=== PATIENT | male | born 1995 | race Caucasian/White ===

== ENCOUNTER 2017-05-12 03:53 | Emergency (ER) | payer MEDICAID ==
[~2017-05-12] VITALS: Ht 175.3 cm; Wt 72.4 kg
[2017-05-12 03:54] VITALS: BP 154/76
== END 2017-05-12 05:09 | disposition left against medical advice (07) ==
LOC: ED 04:15
DX: L20.9 Atopic dermatitis, unspecified (principal)
CPT/HCPCS: 99283

== ENCOUNTER 2018-01-03 20:31 | Emergency (ER) | payer MEDICAID ==
[~2018-01-03] VITALS: Ht 175.3 cm; Wt 68.3 kg
[2018-01-03 20:36] VITALS: BP 156/89
[2018-01-03] MEDS ORDERED: AZITHROMYCIN 250 MG TABLET ONE (21:34)
[2018-01-03] MEDS ORDERED: CEFTRIAXONE 250 MG ONE (21:34)
[2018-01-03 21:43] LABS: MICROSCOPIC NOT IND
[2018-01-03 21:47] LABS: CULTURE INDICATED? NO
[2018-01-03] MEDS ORDERED: AZITHROMYCIN 500 MG TABLET PO ONE (22:00)
[2018-01-03] MEDS ORDERED: CEFTRIAXONE 250 MG IM ONE (22:00)
== END 2018-01-03 22:42 | disposition home or self-care (01) ==
LOC: ED 22:35
DX: R30.0 Dysuria (principal); N41.0 Acute prostatitis; N34.2 Other urethritis; Z20.2 Contact with and (suspected) exposure to infections with a predominantly sexual mode of transmission
CPT/HCPCS: 81003; 87491; 87591; 96372; 99284; J0696

== ENCOUNTER 2018-03-07 01:21 | Emergency (ER) | payer MEDICAID ==
[~2018-03-07] VITALS: Ht 172.7 cm; Wt 70.4 kg
[2018-03-07 01:26] VITALS: BP 154/94
== END 2018-03-07 01:54 | disposition home or self-care (01) ==
LOC: ED 01:32
DX: J00 Acute nasopharyngitis [common cold] (principal); Z00.00 Encounter for general adult medical examination without abnormal findings; F41.1 Generalized anxiety disorder; Z90.89 Acquired absence of other organs
CPT/HCPCS: 99283

== ENCOUNTER 2018-03-08 05:24 | Emergency (ER) | payer MEDICAID ==
[~2018-03-08] VITALS: Ht 172.7 cm; Wt 71.6 kg
[2018-03-08 05:30] VITALS: BP 123/81
== END 2018-03-08 06:17 | disposition home or self-care (01) ==
LOC: ED 05:57
DX: J02.8 Acute pharyngitis due to other specified organisms (principal); B97.89 Other viral agents as the cause of diseases classified elsewhere; F41.1 Generalized anxiety disorder
CPT/HCPCS: 99283